=== PATIENT | female | born 1975 | race Caucasian/White ===

== ENCOUNTER → 2020-08-31 | Day surgery (SDC) | payer OTHER ==
[~2020-08-31] MED LIST: FENTANYL CITRATE/PF 100MCG/2 ML INJ ONE; LIDOCAINE HCL 2% LOCAL INJ 5 ML SDV VIAL INJ ONE; MIDAZOLAM HCL 2 MG/2 ML VIAL ONE; NEXIUM40 MG PO; PROPOFOL IV EMULSION 10 MG/ML 20 ML VIAL ONE
[2020-08-31 08:35] VITALS: BP 101/61
--- NOTE | 2020-08-31 09:29 | Operative Report ---
DATE OF PROCEDURE: 08/31/2020 SURGEON: Bao Guidry MD PROCEDURE: Polypectomy and biopsies. INDICATION FOR PROCEDURES: Heartburn, indigestion. MEDICATIONS: The patient was done under MAC, please see anesthesiologist's note. PROCEDURE IN DETAIL: With the patient in left lateral decubitus position, flexible fiberoptic Olympus gastroscope was introduced into the esophagus under direct visualization without any difficulty. There was some patchy intense erythema noted in distal esophagus. Minute tongues of velvety red mucosa were noted to extend proximally from the GE junction. Biopsies were obtained to rule out Jesus's. The scope was then advanced with ease into the stomach. Mucosa overlying the antrum and the body revealed some patchy erythema, low-grade edema, and biopsies were obtained and sent to stain for H pylori. Hyperplastic appearing polyps were noted in the body of the stomach and somewhat partially excised with the cold biopsy forceps. The pylorus was of normal contour and shape, was intubated with ease and the scope, was advanced all the way to the second portion of the duodenum. The scope was then withdrawn slowly and a small india-ampullary diverticulum was noted. Mucosa overlying the duodenal bulb appeared to be within normal limits. The scope was then withdrawn back into the stomach and retroflexed. The patient is status post lap band, which appears to be in good position and intact. The scope was then straightened out, it was subsequently withdrawn. The patient tolerated procedure well. IMPRESSION: 1. Distal esophagitis. 2. Rule out Jesus's esophagus. 3. Status post lap band intact and in good position. 4. Gastritis, biopsied, biopsies sent to stain for H pylori. 5. Gastric polyps, hyperplastic-appearing, body, some partially excised with the cold biopsy forceps. PLAN: Follow up histology. Increase Nexium to 40 mg one p.o. a.c. b.i.d. MD BRIGETTE Clinton/AFSHIN /[id number] cc: Caleb Myrick
== END | disposition home or self-care (01) ==
LOC: OR 06:02
PROVIDERS: ATTEND Internal Medicine Gastroenterology
DX: K29.50 Unspecified chronic gastritis without bleeding (principal); K31.7 Polyp of stomach and duodenum; K20.90 Esophagitis, unspecified without bleeding; Z98.84 Bariatric surgery status; K22.8 Other specified diseases of esophagus; K21.9 Gastro-esophageal reflux disease without esophagitis; Z88.0 Allergy status to penicillin; Z01.812 Encounter for preprocedural laboratory examination; Z11.59 Encounter for screening for other viral diseases
CPT/HCPCS: 43239; 81025; 88305; 88312; J2001; J2250; J2704; J3010; U0002